=== PATIENT | female | born 1955 | race Caucasian/White ===

== ENCOUNTER 2018-07-10 06:22 | Emergency (ER) | payer MEDICARE, MEDICAID, SELFPAY ==
[2018-07-10 06:23] VITALS: BP 163/81; PULSE 68; RESP 16; TEMP 36.7; O2SAT 97; BMI 29.9
--- NOTE | 2018-07-10 06:39 | CT_ITS ---
STUDY: CT ABDOMEN AND PELVIS WITHOUT CONTRAST REASON FOR EXAM: Female, 63 years old. Left flank pain, nausea and vomiting RADIATION DOSAGE (If Supplied By Facility): CTDIvol = ( 8.05 ) mGy, DLP = ( 402.29 ) mGycm TECHNIQUE: Transaxial images were obtained from the dome of the diaphragm to the symphysis pubis without oral contrast, and without intravenous contrast. Sagittal and coronal images were reconstructed. Individualized dose optimization techniques were used for this CT. COMPARISON: None. FINDINGS: The visualized lung bases are unremarkable. The visualized portions of the heart are within normal limits. There is hepatomegaly with diffuse hepatic enlargement. There is non-visualization of the gallbladder, which may be secondary to either contraction or a prior cholecystectomy. Normal spleen. Normal pancreas. Normal bilateral adrenal glands. Normal right kidney. Left hydronephrosis and left hydroureter. Stone within the left UPJ measuring 6.5 x 6 mm. Left perinephric fat stranding and edema Normal visualized stomach. Normal small intestine. Normal colon. The appendix is visualized and appears normal. Normal abdominal aorta. Normal inferior vena cava. Normal retroperitoneum. Normal urinary bladder. There is atrophy of the uterus. Normal abdominal wall. There are diffuse degenerative changes of the visualized lumbar spine. CT/Abdomen/Pelvis without Cont IMPRESSION: Left hydronephrosis and left hydroureter with perinephric fat stranding and edema. Stone within the left UPJ as above Electronically Signed: Kaleb Kendall DO at 7:29 EST Tel , Service support ,
[2018-07-10 06:47] LABS: Absolute Lymphocyte Count 1.11 X10^3/ul (0.83-4.51); Absolute Neutrophil Count 7.5 X10^3/uL (2.0-7.7); Basophil# 0.02 X10^3/uL; Basophil% 0.2 % (0-1); Eosinophil# 0.02 X10^3/uL; Eosinophils% 0.2 % (0-5); Hematocrit 43.6 % (37-47); Hemoglobin 14.2 g/dl (12.0-15.0); Lymphocyte # 1.11 X10^3/ul (4.0); Lymphocyte % 12.4 % (19-41); Mean Corp Hgb Conc 32.6 g/gl (32-36); Mean Corpuscular Hgb 29.5 pg (27.0-32.0); Mean Corpuscular Volume 90.6 fL (81-99); Mean Platelet Vol. 9.8 fl (6.2-12.0); Monocyte# 0.27 X10^3/uL; Neutrophil # 7.52 X10^3/uL (2.7-7.7); Platelet Count 243 K/mm3 (150-450); RBC Distribution Width CV 14.2 % (11.6-14.6); RBC Distribution Width SD 46.7 fl (35.1-43.9); Red Blood Count 4.81 M/mm3 (4.2-5.4)
[2018-07-10 06:48] LABS: POSITIVE COUNT NO; POSITIVE DIFFERENTIAL NO; POSITIVE MORPHOLOGY NO
[2018-07-10] MEDS: Ondansetron 4 MG/2 ML Vial IV (06:48)
[2018-07-10] MEDS: 0.9% Normal Saline 1,000 ML 1000 ML IV (06:48)
[2018-07-10] MEDS: Morphine 4 MG/ML Syringe IV (06:48)
[2018-07-10 06:54] LABS: Anion Gap 12 (5-15); BUN 18 mg/dL (7-18); BUN/Creat Ratio 14.3 RATIO (10-20); Calcium,Total 9.7 mg/dL (8.5-10.1); Chloride 100 mmol/L (98-107); Creatinine, Serum 1.26 mg/dL (0.55-1.02); EST Glomerular Filtration Rate 46 mL/min (>60); Est Glom Filt Rate - Afr Amer 56 mL/min (>60); Estimated Creatinine Clearance 37.08 ml/min; Glucose 341 mg/dL (74-106); Sodium Level 137 mmol/L (136-145)
[2018-07-10 06:57] LABS: Mucous, Urine 0 SEEN /hpf (<or=2+)
[2018-07-10 07:06] LABS: Color, Urine Yellow (Yellow); Glucose, Dipstick 1000 mg/dl (Normal); Leukocyte Esterase-Dipstick 25 /ul (Negative); Nitrite-Dipstick Negative (Negative); Occult Blood-Urine 250 /ul (Negative); Protein-Dipstick 100 mg/dl (Negative); Specific Gravity, Urine 1.025 (1.002-1.030); Urine Bilirubin Dipstick Negative (Negative); Urine Clarity Cloudy (Clear); Urine Urobilinogen Normal (Normal)
[2018-07-10 07:32] LABS: Ketone-Dipstick 150 mg/dl (Negative)
[2018-07-10 07:37] LABS: Bacteria 1+ /hpf (None Seen); Red Blood Cells-Urine 25-50 SEEN /hpf (0-5); Squamous Epithelial Cells - UA 0-5 SEEN /hpf (5-10); White Blood Cells 0-5 SEEN /hpf (0-5)
[2018-07-10] MEDS: HYDROmorphone 1 MG/ML Syringe IV (08:13)
--- NOTE | 2018-07-10 08:46 | ED.VISSUMM ---
- ER Visit Summary Date of Service: 07/10/18 Chief Complaint: Left flank pain History of Present Illness: The patient is a [address] Lala. She reports that she has left flank pain that began suddenly yesterday. Says sharp pain is 10 out of 10 severity. Is worsened by nothing and relieved by nothing. She has been nausea and vomited quite a few times. No blood in her emesis. No diarrhea. She reports that she has had hematuria occasionally for the past 2 months. She denies any dysuria or frequency. No fever or chills. No personal or family history of kidney stones. Physical Examination: Vitals: Stable. Afebrile. General: Well-nourished and well-developed. Head: Normocephalic atraumatic. Neck: Supple, no lymphadenopathy. No JVD. Nontender. Cardiovascular: Regular rate and rhythm. No murmurs. Respiratory: No respiratory distress. Clear to auscultation bilaterally. Abdominal: Soft, mild left lower quadrant tenderness to palpation, nondistended, normal bowel sounds. No guarding, rebound, or peritoneal signs. Back: Nontender. Extremities: Nontender, no edema. Skin: Normal color, no rash. Neurologic: Alert and oriented ?3. Cranial nerves II through XII are intact. Normal strength and sensation. Psych: Normal affect. Test Results: CBC is marked for 7 neutrophils 84 lymphs lites 12. Chem-7 is more for glucose 341 creatinine 1.26. UA does not show an infection. Clinical Impression(s) from Imaging Studies Abdomen/Pelvis CT 07/10/18 06:39 IMPRESSION: Left hydronephrosis and left hydroureter with perinephric fat stranding and edema. Stone within the left UPJ as above Electronically Signed: Kaleb Kendall DO at 7:29 EST Tel , Service support , Emergency Department Course and Treatment: Patient had an IV placed. She was given a liter normal saline. She was given morphine and Zofran IV. She continues to experience pain that she reports is a 7 out of 10 severity. She was given a dose of Dilaudid IV and feels much improved. She reports her pain now is 2 out of 10 severity. She feels well and would like to go home. Treatment Plan: Patient will be discharged with Percocet and Zofran. Instructed to follow-up Dr. Walton in 3-5 days if not improving. Return to the emergency department for any worsening symptoms. Disposition: To home in improved and stable condition. Impression: 1. Left ureterolithiasis. 2. Hyperglycemia with history of type 2 diabetes mellitus. This note was generated with [employer] dictation software. It may contain incorrect words, spelling, and punctuation that were not noted in review of the chart prior to signing ED Disposition - Plan for ED Patient: Chief Complaint: Flank Pain Instructions: ED Stone Renal W Colic Prescriptions: Oxycodone HCl/Acetaminophen [Percocet 5/325] 1 tablet PO Q6H PRN PRN 5 Days #20 tablet PRN Reason: Pain Ondansetron [Zofran Odt] 4 mg PO Q8H PRN PRN #10 tablet PRN Reason: Nausea Referrals: Mino Walton MD [STAFF PHYSICIAN] - 3-5 Days if not improving
[2018-07-10 09:08] VITALS: BP 135/74; PULSE 81; RESP 16; O2SAT 97
== END 2018-07-10 09:09 | disposition home or self-care (01) ==
PROVIDERS: Emergency Provider Emergency Medicine; Family Provider Student in an Organized Health Care Education/Training Program; PCP Student in an Organized Health Care Education/Training Program
DX: N13.2 Hydronephrosis with renal and ureteral calculous obstruction (principal); E11.65 Type 2 diabetes mellitus with hyperglycemia; I10 Essential (primary) hypertension; E78.00 Pure hypercholesterolemia, unspecified; Z86.73 Personal history of transient ischemic attack (TIA), and cerebral infarction without residual deficits
CPT/HCPCS: 74176; 80048; 81001; 85025; 96361; 96374; 96375; 99284; J7030; A4216; J2405

== ENCOUNTER 2018-07-21 10:07 | Day surgery (SDC) | payer MEDICARE, MEDICAID, SELFPAY ==
[2018-07-21 10:30] VITALS: BP 128/66; PULSE 82; RESP 18; TEMP 37.3; O2SAT 95; BMI 28.8
[2018-07-21 10:31] LABS: Prothrombin Time Fingerstick 31.9 SEC (11.9-14.4)
[2018-07-21 10:47] LABS: International Normalized Ratio 2.6; Prothrombin Time (Protime)PT. 28.3 SECONDS (11.7-14.9)
[2018-07-21 10:52] LABS: Bedside Glucose 150 mg/dL (70-110)
--- NOTE | 2018-07-21 11:00 | OP.PCM_ITS ---
Problem List (1) Left ureteral calculus Status: Acute (2) Hydronephrosis, left Status: Acute Report of Operation Date of Procedure: 07/21/18 Pre-Operative Diagnosis: left ureteral calculus with hydronephrosis. Post-Operative Diagnosis: same, left ureteral laceration Surgery/Procedure Performed:: cystoscopy, left ureteroscopy, left ureteral stent insertion Description of Surgical Findings:: left stone seen proximally. difficult ureteroscopy with distal laceration to the ureter. Left ureteral stent inserted without difficulty. Good positioning of stent with curling in renal pelvis. Type of Anesthesia:: General Special Medications: ancef Specimen's removed: none Description of Procedure: The patient is a 63-year-old female seen in the office yesterday with severe left flank pain. She had a CT scan with her revealing a ureteral calculus with hydronephrosis. I obtained informed consent for cystoscopy with ureteroscopy and laser lithotripsy. Risks were discussed including the risk of anesthesia, cardiac issues, pulmonary issues, stroke, from anesthesia. We also discussed the risks of bleeding, infection, and injury. Specifically we discussed ureteral injury, bladder injury and the need for prolonged stent insertion. The patient understood and agreed to proceed. Patient was taken to the operating room and placed on the operating room table. Anesthesia monitored the head, neck, airway, IV access, vital signs throughout the case. Once anesthesia was appropriately administered, the patient was placed into dorsal lithotomy position and was prepped and draped in usual sterile fashion. A cystourethroscopy was then performed revealing no evidence of bladder mucosal abnormality including mass, erythema, ulceration or foreign body. The ureteral orifices were correctly identified on the area of the trigone. The left ureteral orifice was easily intubated with a 0.035 Glidewire and was seen proximally curling in the renal pelvis. At this time a semirigid ureteroscopy was attempted and became difficult distally and a 0.025 Glidewire was passed also with entry into the renal pelvis. At this time it was observed that there was likely a laceration of the distal third of the ureter and the decision was made to place a stent and abort ureteroscopy. The cystoscope was used to pass a 6 [place] 24 cm double-J stent through the ureter with good curling in the renal pelvis as well as the urinary bladder. Patient's bladder was then emptied and the case was terminated. The patient tolerated the procedure well. Grafts/Implants Used: 6x24 JJ ureteral stent. - Complications left ureteral laceration. - Admit VTE Documentation VTE Present on Admission: Yes VTE Mechan Device Prophylaxis: SCD's VTE Pharm Prophylaxis ordered?: Yes
--- NOTE | 2018-07-21 11:01 | DCINST_ITS ---
Discharge Diet: No Restrictions Discharge Activity: May not drive while taking narcotic pain medications. May resume sexual activity in: No Restrictions Call your doctor if you observe: Fever of 101 or Higher, Inability to urinate, Inability to have a bowel movement, Shortness of breath, Chest pain, Calf discomfort, Uncontrolled pain Allergies/Adverse Reactions: Allergies aspirin Allergy (Verified 07/20/18 11:58) Hives clopidogrel [From Plavix] Allergy (Verified 07/20/18 11:58) Hives codeine Allergy (Verified 07/20/18 11:58) Hives Medications to take at Discharge Albuterol IH (ProAir) [Proair Hfa] 2 puff INHALATION Q4H PRN PRN 09/07/13 Cholecalciferol (Vitamin D3) [Vitamin D] 2,000 unit PO DAILY 09/07/13 Glimepiride [Amaryl] 4 mg PO BID 09/07/13 Levothyroxine [Synthroid] 100 mcg PO DAILY 09/07/13 Metformin HCl [Glucophage] 1,000 mg PO BIDCM 09/07/13 Tizanidine HCl [Zanaflex] 0.5 - 1 mg PO DAILY PRN 09/07/13 Warfarin [Coumadin] 5 mg PO DAILY 09/07/13 Dulaglutide [Trulicity] 1.5 mg SQ 07/10/18 Insulin Aspart [Novolog Flexpen] 15 units SC TIDCM 07/10/18 Insulin Degludec [Tresiba Flextouch U-100] 100 unit SQ QHS 07/10/18 Losartan Potassium 10 mg PO DAILY 07/10/18 Lovastatin 20 mg PO QHS 07/10/18 Ondansetron [Zofran Odt] 4 mg PO Q8H PRN PRN #10 tablet 07/10/18 Warfarin [Coumadin] 2.5 mg PO 07/10/18 Cephalexin [Keflex] 500 mg PO Q12 3 Days #6 cap 07/21/18 Phenazopyridine HCl [Pyridium] 200 mg PO TID PRN PRN 7 Days #30 tab 07/21/18 The following prescriptions were given: Cephalexin [Keflex] 500 mg PO Q12 3 Days #6 cap Phenazopyridine HCl [Pyridium] 200 mg PO TID PRN PRN 7 Days #30 tab PRN Reason: Bladder Spasms Primary Care Physician: David Lala DO [Primary Care Provider] - Test Results: Test results from this visit will be discussed in further detail at your follow- up appointment, if applicable. Please Follow Up With: Diane Garza MD When: 1-2 weeks for stent removal, call office for appt Proposed Discharge Date: 07/21/18
[2018-07-21] MEDS: Cefazolin 2 GM in 0.9% Normal Saline 100 ML IV (11:27)
[2018-07-21 11:50] VITALS: BP 108/63; BP 128/66; PULSE 82; RESP 16; TEMP 37.2; O2SAT 92
[2018-07-21 12:00] VITALS: BP 102/59; BP 128/66; PULSE 75; RESP 16; O2SAT 92
[2018-07-21 12:15] VITALS: BP 112/63; BP 128/66; PULSE 77; RESP 16; TEMP 37; O2SAT 94
[2018-07-21 12:42] VITALS: BP 128/66
== END 2018-07-21 13:06 | disposition home or self-care (01) ==
LOC: SDC 10:07 → AC 10:08
PROVIDERS: Family Provider Student in an Organized Health Care Education/Training Program; PCP Student in an Organized Health Care Education/Training Program; Referring Provider Urology; Visit Provider Urology
PROC: 0TJ98ZZ Inspection of Ureter, Via Natural or Artificial Opening Endoscopic (ICD-10-PCS; CPT 52352; principal; 2018-07-21 11:35)
DX: N13.2 Hydronephrosis with renal and ureteral calculous obstruction (principal); M54.5 Low back pain; N39.3 Stress incontinence (female) (male); N39.41 Urge incontinence; S37.13XA Laceration of ureter, initial encounter; Y33.XXXA Other specified events, undetermined intent, initial encounter; Y93.9 Activity, unspecified; Y92.234 Operating room of hospital as the place of occurrence of the external cause; Y99.9 Unspecified external cause status; E11.9 Type 2 diabetes mellitus without complications; I10 Essential (primary) hypertension; E78.00 Pure hypercholesterolemia, unspecified; Q21.1 Atrial septal defect; G35 Multiple sclerosis; Z79.01 Long term (current) use of anticoagulants; Z86.73 Personal history of transient ischemic attack (TIA), and cerebral infarction without residual deficits
CPT/HCPCS: 52332; 52351; 36415; 36416; 76000; 82962; 85610; J7120; C1769; C2617

== ENCOUNTER → 2018-08-25 07:55 | Outpatient (CLI) | payer MEDICARE, MEDICAID, SELFPAY ==
--- NOTE | 2018-08-25 07:57 | CT_ITS ---
STUDY: CT ABDOMEN AND PELVIS WITH AND WITHOUT CONTRAST REASON FOR EXAM: Female, 63 years old. Left-sided kidney stone. Stent placement July 21, 2018. RADIATION DOSAGE (If Supplied By Facility): CTDIvol = ( 16.80 ) mGy, DLP = ( 1955.99 ) mGycm TECHNIQUE: Transaxial images were obtained from the dome of the diaphragm to the symphysis pubis without oral contrast. Isovue 300 100mL IV was administered. Sagittal and coronal images were reconstructed. Individualized dose optimization techniques were used for this CT. COMPARISON: None. FINDINGS: The visualized lung bases are unremarkable. The visualized portions of the heart are within normal limits. Subcentimeter hypodensity in the right lobe of the liver measuring 8 mm. 2 small to further characterize, remainder of the liver is within normal limits. There is non-visualization of the gallbladder, which may be secondary to either contraction or a prior cholecystectomy. Normal spleen. Normal pancreas. Normal bilateral adrenal glands. Small nonenhancing right upper pole renal cyst measuring 1.2 cm. Otherwise, unremarkable right kidney. Left kidney demonstrates mild hydronephrosis with a left ureteral stent extending into the bladder. The bladder is decompressed. There appears to be a stone subjacent to the stent in the upper ureter measuring 4.9 mm. Otherwise, the left kidney is within normal limits without other stones. There is a small hiatal hernia. In the gastric antrum, there is a rounded density which may represent ingested contents measuring 1.0 cm. Normal small intestine. Normal colon. The appendix is visualized and appears normal. Normal abdominal aorta. Normal inferior vena cava. Normal retroperitoneum. Bladder is underdistended. Stent terminates within the bladder. Normal visualized uterus. Normal abdominal wall. There are diffuse degenerative changes of the visualized lumbar spine. CT/CT Abd/Pelvis W/WO Contrast IMPRESSION: Mild left hydronephrosis with left ureteral stent. There appears to be a stone adjacent to the stent as detailed above. Nonenhancing right renal cyst. Remainder is within normal limits Electronically Signed: Kaleb Kendall DO at 11:13 EDT Tel , Service support ,
[2018-08-25 08:21] LABS: CREATININE FINGERSTICK 1.1 mg/dL (0.55-1.02)
== END ==
PROVIDERS: Family Provider Student in an Organized Health Care Education/Training Program; PCP Student in an Organized Health Care Education/Training Program; Referring Provider Urology; Visit Provider Urology
DX: N20.0 Calculus of kidney (principal)
CPT/HCPCS: 74178; Q9967

== ENCOUNTER 2018-09-07 18:37 | Inpatient (IN) | payer MEDICARE, MEDICAID, SELFPAY ==
[2018-09-04 09:19] VITALS: BP 136/74; PULSE 94; RESP 18; TEMP 37.1; O2SAT 95; BMI 28.2
--- NOTE | 2018-09-04 09:45 | DCINST_ITS ---
Discharge Diet: No Restrictions Discharge Activity: May not drive while taking narcotic pain medications. Call your doctor if you observe: Fever of 101 or Higher, Inability to urinate, Inability to have a bowel movement, Shortness of breath, Chest pain, Calf discomfort Allergies/Adverse Reactions: Allergies aspirin Allergy (Verified 09/03/18 08:31) Hives clopidogrel [From Plavix] Allergy (Verified 09/03/18 08:31) Hives codeine Allergy (Verified 09/03/18 08:31) Hives Medications to take at Discharge Albuterol IH (ProAir) [Proair Hfa] 2 puff INHALATION Q4H PRN PRN 09/07/13 Cholecalciferol (Vitamin D3) [Vitamin D] 2,000 unit PO DAILY 09/07/13 Glimepiride [Amaryl] 4 mg PO BID 09/07/13 Levothyroxine [Synthroid] 100 mcg PO DAILY 09/07/13 Metformin HCl [Glucophage] 1,000 mg PO BIDCM 09/07/13 Tizanidine HCl [Zanaflex] 0.5 - 1 mg PO DAILY PRN 09/07/13 Warfarin [Coumadin] 5 mg PO TUTH 09/07/13 Dulaglutide [Trulicity] 1.5 mg SQ WE 07/10/18 Insulin Aspart [Novolog Flexpen] 15 units SC TIDCM 07/10/18 Insulin Degludec [Tresiba Flextouch U-100] 50 unit SQ QHS 07/10/18 Losartan Potassium 10 mg PO DAILY 07/10/18 Lovastatin 20 mg PO QHS 07/10/18 Warfarin [Coumadin] 2.5 mg PO SUMOWEFRSA 07/10/18 Cephalexin [Keflex] 250 mg PO QHS 120 Days #90 cap 07/21/18 Primary Care Physician: David Lala DO [Primary Care Provider] - Test Results: Test results from this visit will be discussed in further detail at your follow- up appointment, if applicable. Please Follow Up With: Diane Garza MD When: call office for appt. Proposed Discharge Date: 09/04/18
--- NOTE | 2018-09-04 09:45 | PCM.OPRPT ---
Problem List (1) Left ureteral calculus Status: Acute (2) Hydronephrosis, left Status: Acute Report of Operation Date of Procedure: 09/04/18 Pre-Operative Diagnosis: left ureteral calculus with hydronephrosis Post-Operative Diagnosis: same Surgery/Procedure Performed:: left ureteral extracorporeal shockwave lithotripsy Type of Anesthesia:: General - Admit VTE Documentation VTE Present on Admission: Yes VTE Mechan Device Prophylaxis: SCD's VTE Pharm Prophylaxis ordered?: No Reason prophylaxis not ordered:: Treatment Not Indicated
[2018-09-04 10:41] LABS: Bedside Glucose 164 mg/dL (70-110)
[2018-09-04 10:50] LABS: Prothrombin Time Fingerstick 19.8 SEC (11.9-14.4)
[2018-09-04] MEDS: Cefazolin 2 GM in 0.9% Normal Saline 100 ML IV (12:57)
[2018-09-07] VITALS (14 sets, daily range): BP systolic 80–133; BP diastolic 46–70; PULSE 66–104; RESP 16–18; TEMP 36.1–39.6; O2SAT 91–99; BMI 28.0
[2018-09-07 10:16] LABS: Bedside Glucose 135 mg/dL (70-110)
[2018-09-07 10:29] LABS: International Normalized Ratio 1.3; Prothrombin Time (Protime)PT. 15.9 SECONDS (11.7-14.9)
--- NOTE | 2018-09-07 12:00 | CALC_PTH ---
PATIENT: MARÍA ELENA TALAVERA LOC: MS2 U#:[id number] AGE/SX: 63/F ROOM: [facility] [id number] RE09/07/[address]: Dr. Ursula Schumacher DO : 1955 BED: 1 DIS: 09/09/2018 SPEC #: [id number] RECD: 09/07/18 16:07 STATUS: KINZA JENNIFER #: [id number] JOHN: 09/07/18 12:[address]: Diane Garza DEPT: SURGICAL PATHOLOGY RECD BY: Lorenzo Oakley ENTERED: 09/08/18 11:25 SP TYPE: Calculi OTHR DR: DO Dr. David Wagner DO Dr. Mark Tereletsky, DO Tissues: CALCULI Procedures: Surgery Specimen Level I HEADER OPERATION: Left ureteroscopy, retrogrades, holmium laser PRE-OP DIAGNOSIS: Calculus of ureter TISSUE SUBMITTED: Calculi, urinary with photo GROSS DIAGNOSIS A fragment of stone, clinically calculus of ureter, submitted entirely for analysis. VLADIMIR:neel 09/08/18 COMMENT The calculus is submitted in its entirety for chemical stone analysis. The results from this study will be reported separately. GROSS DESCRIPTION Received is one container labeled with the patient's name and designated calculi. The specimen consists of a fragment of garay-brown stone measuring 0.6 x 0.2 x 0.2 cm. The entire specimen is submitted for stone analysis. / VLADIMIR:neel 09/08/18 CPT: 73359
[2018-09-07] MEDS: Cefazolin 2 GM in 0.9% Normal Saline 100 ML IV (12:57)
--- NOTE | 2018-09-07 13:00 | PCM.OPRPT ---
Problem List (1) Left ureteral calculus Status: Acute (2) Hydronephrosis, left Status: Acute Report of Operation Date of Procedure: 09/07/18 Pre-Operative Diagnosis: left ureteral calculus Post-Operative Diagnosis: same Surgery/Procedure Performed:: cystoscopy, left ureteroscopy, holmium laser lithotripsy, stone basket extraction, left ureteral stent change. Description of Surgical Findings:: large stone in mid ureter. lasered into smaller fragments, many flushed into the bladder. One large fragment removed with basket. stent changed. Type of Anesthesia:: General Special Medications: Ancef 2 grams IV Estimated Blood Loss (mL): 5cc Description of Procedure: The patient is a 63-year-old female who previously underwent a left ureteral stent insertion after attempted ureteroscopy. She now presents for treatment of her stone. Informed consent was obtained. Patient's INR is 1.3. The patient was taken the operating room and placed on the operating room table. Anesthesia monitored the head, neck, airway, IV access and vital signs throughout the case. Once anesthesia was appropriately administered, the patient was placed into dorsal lithotomy position. She was prepped and draped in usual sterile fashion. A cystourethroscopy was performed. The left ureteral stent was observed and two 0.035 Glidewires were passed alongside the stent into the renal pelvis and confirmed on fluoroscopic visualization. The stent was removed from the other working port. One of the Glidewires was left as a safety wire and the other one was used for the flexible ureteroscope. The ureteroscope passed easily over the wire all the way up to the renal pelvis. The stone could be felt alongside the scope and was identified in the distal ureter. It was fragmented into small pieces using a 270 micron laser fiber. The stone was much larger than initially thought. When a small piece was remaining, it was basket retrieved and removed from the bladder without difficulty. Upon reinsertion into the ureter there were no remaining pieces identified. The cystoscope was then used to pass a 6 [place] 24 cm double-J wire over the safety wire with good curling in the renal pelvis as well as the urinary bladder. Multiple fragments were then irrigated from the bladder. Some of the stone pieces were sent for evaluation. The patient was then awakened and taken to the recovery room. There were no complications during the procedure. The patient and the daughter were instructed to restart the coumadin today. Grafts/Implants Used: 6x24 JJ stent - Complications none - Admit VTE Documentation VTE Present on Admission: Yes VTE Mechan Device Prophylaxis: SCD's VTE Pharm Prophylaxis ordered?: Yes
[2018-09-07] MEDS: Lubricating Jelly 60 GM Tube 30 GM TOPICAL (13:08)
[2018-09-07 14:35] LABS: Bedside Glucose 64 mg/dL (70-110)
[2018-09-07 15:06] LABS: Bedside Glucose 63 mg/dL (70-110)
[2018-09-07 15:31] LABS: Bedside Glucose 64 mg/dL (70-110)
[2018-09-07] MEDS: Acetaminophen 325 MG Tablet 650 MG PO (17:42)
--- NOTE | 2018-09-07 17:44 | SUR.PHASEII ---
Addendum entered by Lenora Murphy 09/07/18 17:47: DR DHALIWAL EVALUATED AT 1600 PER PROTOCOL, AND UPDATED AGAIN AT 1725, AWARE OF TEMP AND BP AT 1725, VERBAL INSTRUCTION TO CONTINUE IVF ORDERED. Original Note: PAGED DR. WILLS TO UPDATE: WAS STABLE AND D/C EARLIER FROM PACU TO PHASE II PER PROTOCOL. PATIENT ABLE TO VOID. TEMP IS NOW 103.3, SBP <20% OF ADMIT BP AT 90/53. DENIES PAIN. EATING VERY LITTLE, STILL SLIGHTLY NAUSEATED BUT ABLE TO DRINK AND EAT SOME JELLO, SLEEPY SINCE HAVING PHENERGAN. ACCUCHECK 107. DR WILLS WILL ADMIT TO MED-SURG, WILL COME IN TO SEE PATIENT.
[2018-09-07 18:00] LABS: Bedside Glucose 107 mg/dL (70-110)
--- NOTE | 2018-09-07 18:00 | SUR.PHASEII ---
PO TYLENOL GIVEN. DR WILLS HERE EVALUATING PATIENT, WILL ADMIT OVERNIGHT TO MED-SURG. PATIENT AND FAMILY AWARE. CALLED MATERIAL HAND[employer]ER 2ND SHIFT FOR BED ASSIGNMENT, WILL ADMIT TO PCU FOR HOSPITAL CONVENIENCE. DR WILLS PAGING HOSPITALIST.
--- NOTE | 2018-09-07 18:27 | PCM.HP.BLA ---
Problem List (1) Left ureteral calculus Status: Acute (2) Hydronephrosis, left Status: Acute History and Physical Date of Admission: 09/07/18 Please see the full history and physical on the chart from pre-surgery.
--- NOTE | 2018-09-07 18:28 | PCM.PN.BLA ---
Progress Note Called secondary to new fever to 103. Patient was nauseated earlier, now taking PO. Mild left flank pain, feeling tired, otherwise no complaints at present. Temp 103.3, HR 97, BP 90/53, RR 16, 96% on room air. No acute distress, appropriate affect. abdomen soft No nava A/P Urosepsis following ureteroscopy and laser lithotripsy with stent change admit, IVF, cultures, supportive care Consult hospitalist for help with insulin, anticoagulation, already contacted. labs, nava
[2018-09-07] MEDS: Dextrose 5%-Lactated Ringers 1,000 ML 125 ML IV (19:50)
[2018-09-07 20:55] LABS: Hematocrit 32.3 % (37-47); Hemoglobin 10.6 g/dl (12.0-15.0); Mean Corp Hgb Conc 32.8 g/gl (32-36); Mean Corpuscular Hgb 29.5 pg (27.0-32.0); Mean Platelet Vol. 9.4 fl (6.2-12.0); Platelet Count 188 K/mm3 (150-450); RBC Distribution Width CV 14.8 % (11.6-14.6); RBC Distribution Width SD 48.4 fl (35.1-43.9); Red Blood Count 3.59 M/mm3 (4.2-5.4); Scan Indicated on CBC? Y/N NO; White Blood Count 4.5 K/mm3 (4.4-11.0)
[2018-09-07 21:04] LABS: International Normalized Ratio 1.5; Prothrombin Time (Protime)PT. 17.6 SECONDS (11.7-14.9)
[2018-09-07 21:08] LABS: Anion Gap 7 (5-15); BUN 11 mg/dL (7-18); BUN/Creat Ratio 10.4 RATIO (10-20); Calcium,Total 8.3 mg/dL (8.5-10.1); Chloride 106 mmol/L (98-107); Creatinine, Serum 1.06 mg/dL (0.55-1.02); EST Glomerular Filtration Rate 56 mL/min (>60); Est Glom Filt Rate - Afr Amer 68 mL/min (>60); Estimated Creatinine Clearance 44.08 ml/min; Glucose 264 mg/dL (74-106); Potassium 3.6 mmol/L (3.5-5.1); Sodium Level 137 mmol/L (136-145)
[2018-09-07] MEDS: Insulin Lispro 100 UNIT/ML INSULN.PEN SC (21:33)
[2018-09-07] MEDS: Heparin Injection (Vial) 5,000 UNIT/ML VIAL 5000 UNIT SC (21:35)
[2018-09-07] MEDS: Ciprofloxacin 400 MG/200 ML BAG 200 MG IV (21:37)
--- NOTE | 2018-09-07 21:45 | PCM.PROGNOTE ---
Subjective: Patient was seen and examined at the request of urology, she was admitted to PCU due to a high temperature following cystoscopy, left ureteroscopy, laser lithotripsy, stone basket extraction, and left ureteral stent change today by urology. Patient has a history of type 2 diabetes, patent foramen ovale, chronic Coumadin usage, hypothyroidism, hyperlipidemia, and recent left ureteral stone. At the time of my examination tonight, patient has no specific complaints. - Physical Exam General: Alert, Oriented x3, Cooperative, No apparent distress, Well developed, Well nourished HEENT: Atraumatic, PERRLA, EOMI, Normocephalic Oral: Moist Mucosa Neck: Supple, No JVD, Negative Carotid Bruits, No Nuchal Rigidity, Trachea Midline, Thyroid Normal Size and Texture Lungs: Clear to auscultation, Normal air movement, No rhonchi, No wheeze, No rales Cardiovascular: Regular rate, Regular Rhythm, Normal S1, Normal S2, No murmurs, No Ectopic Activity, PMI Normal, No rub noted, No Gallop Abdomen: Bowel Sounds Present, Soft, Non Tender, Non-Distended, No hernias noted Extremities: No clubbing, No cyanosis, No edema, Capillary Refill Less than 3 Seconds Skin: No rashes, No breakdown Musculoskeletal: No Tenderness to Palpation of Joints or Extremities, No Muscle Wasting Neurological: Cranial nerves II-XII grossly intact, Neuro grossly intact, Sensory exam intact to light touch and pain, Coordination normal Psych/Mental Status: Normal Affect, Appropriate, Alert and oriented to time, place, person, mood and affect Vital Signs Temp Pulse Resp BP Pulse Ox 99.9 F H 104 H 18 80/47 L 92 09/07/18 19:54 09/07/18 19:54 09/07/18 19:54 09/07/18 19:54 09/07/18 19:54 Oxygen Delivery Method Room Air Weight: 69.7 kg Body Mass Index (BMI) 28.0 Finger Stick Blood Glucose 107 Intake and Output for Last 24 Hours 09/05/18 09/06/18 09/07/18 23:59 23:59 23:59 Intake Total 3700 / 3700 Balance 3700 / 3700 Laboratory Tests Past 24 Hrs 09/07/18 09/07/18 09/07/18 10:07 10:12 20:30 WBC 4.5 RBC 3.59 L Hgb 10.6 L Hct 32.3 L MCV 90.0 MCH 29.5 MCHC 32.8 RDW 14.8 H RDW Differential 48.4 H Plt Count 188 MPV 9.4 POC PT 18.0 H PT 15.9 H INR 1.50 1.3 Sodium Potassium Chloride Carbon Dioxide Anion Gap BUN Creatinine Estim Creat Clear Calc Est GFR (MDRD) Af Amer Est GFR (MDRD) Non-Af BUN/Creatinine Ratio Glucose Calcium 09/07/18 09/07/18 20:30 20:35 WBC RBC Hgb Hct MCV MCH MCHC RDW RDW Differential Plt Count MPV POC PT PT 17.6 H INR 1.5 Sodium 137 Potassium 3.6 Chloride 106 Carbon Dioxide 24.0 Anion Gap 7 BUN 11 Creatinine 1.06 H Estim Creat Clear Calc 44.08 Est GFR (MDRD) Af Amer 68 Est GFR (MDRD) Non-Af 56 L BUN/Creatinine Ratio 10.4 Glucose 264 H Calcium 8.3 L POC Glucose 09/07/18 09/07/18 09/07/18 17:13 15:23 14:58 POC Glucose 107 64 L 63 L 09/07/18 09/07/18 14:19 10:12 POC Glucose 64 L 135 H Medical Necessity - Tobacco Use Smoking Status: Never smoker Assessment/Plan All Active Problems Left ureteral calculus (Acute) Hydronephrosis, left (Acute) #1 type 2 diabetes-blood sugars will be monitored, she will be given sliding scale insulin per fingerstick blood sugars #2 patent foramen ovale-patient was placed back on her Coumadin #3 hypothyroidism-patient will remain on Synthroid #4 fever-concerning for acute pyelonephritis, patient's CBC will be rechecked tomorrow, urology has placed the patient on IV Cipro. #5 probable stage III chronic kidney disease secondary to type 2 diabetes Code Visit Inpatient E&M: 44605 Subs Hosp L2
[2018-09-07 23:06] LABS: Bedside Glucose 256 mg/dL (70-110)
[2018-09-08 03:54] VITALS: BP 96/50; PULSE 94; RESP 18; TEMP 37.6; O2SAT 96
[2018-09-08] MEDS: Dextrose 5%-Lactated Ringers 1,000 ML 125 ML IV (04:20)
[2018-09-08] MEDS: Heparin Injection (Vial) 5,000 UNIT/ML VIAL 5000 UNIT SC ×3 (05:38→22:05)
[2018-09-08] MEDS: Levothyroxine 100 MCG Tablet PO (05:38)
[2018-09-08 07:01] LABS: Bedside Glucose 120 mg/dL (70-110)
[2018-09-08 09:10] VITALS: O2SAT 92
[2018-09-08 09:15] VITALS: BP 103/52; PULSE 99; RESP 14; TEMP 37.8; O2SAT 92
[2018-09-08] MEDS: Ciprofloxacin 400 MG/200 ML BAG 200 MG IV ×2 (09:24→22:05)
[2018-09-08] MEDS: Acetaminophen 325 MG Tablet 650 MG PO (09:26)
[2018-09-08] MEDS: Insulin Lispro 100 UNIT/ML INSULN.PEN SC ×3 (11:49→22:05)
--- NOTE | 2018-09-08 11:50 | PCM.PN.GU ---
Physical Exam Subjective: Feeling better, want to go home. No new issues or events overnight. Objective: Noted that nava was never inserted as ordered last night. Labs from this am were cancelled. 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 - Physical Exam Vital Signs Temp 100.1 F H 09/08/18 09:15 Pulse 99 09/08/18 09:15 Resp 14 09/08/18 09:15 BP 103/52 L 09/08/18 09:15 Pulse Ox 92 09/08/18 09:15 Intake & Output 09/06/18 09/07/18 09/08/18 23:59 23:59 23:59 Intake Total 4402 / 4402 2540 / 2540 Output Total 1550 / 1550 Balance 4402 / 4402 990 / 990 Weight: 69.7 kg Intake: Oral 120 / 120 970 / 970 IV fluid/meds 4282 / 4282 1570 / 1570 IV #2 1400 / 1400 IV #3 2300 / 2300 Output: Urine 1550 / 1550 Other: Number of Voids 2 General: Alert, Oriented x3, Cooperative, No apparent distress HEENT: Atraumatic, Normocephalic Oral: Dry Mucosa Neck: Supple Abdomen: Soft Skin: No rashes Musculoskeletal: No Muscle Wasting Neurological: Cranial nerves II-XII grossly intact Laboratory Tests Past 24 Hrs 09/07/18 09/07/18 09/07/18 16:07 20:30 20:30 WBC 4.5 RBC 3.59 L Hgb 10.6 L Hct 32.3 L MCV 90.0 MCH 29.5 MCHC 32.8 RDW 14.8 H RDW Differential 48.4 H Plt Count 188 MPV 9.4 Neut % (Auto) Absolute Neuts (auto) Total Counted PT INR Sodium 137 Potassium 3.6 Chloride 106 Carbon Dioxide 24.0 Anion Gap 7 BUN 11 Creatinine 1.06 H Estim Creat Clear Calc 44.08 Est GFR (MDRD) Af Amer 68 Est GFR (MDRD) Non-Af 56 L BUN/Creatinine Ratio 10.4 Glucose 264 H Calcium 8.3 L Stone Size Pending Stone Weight Pending Stone Color Pending 09/07/18 09/08/18 09/08/18 20:35 11:28 11:28 WBC Pending RBC Pending Hgb Pending Hct Pending MCV Pending MCH Pending MCHC Pending RDW Pending RDW Differential Pending Plt Count Pending MPV Neut % (Auto) Pending Absolute Neuts (auto) Pending Total Counted Pending PT 17.6 H INR 1.5 Sodium Pending Potassium Pending Chloride Pending Carbon Dioxide Pending Anion Gap Pending BUN Pending Creatinine Pending Estim Creat Clear Calc Est GFR (MDRD) Af Amer Pending Est GFR (MDRD) Non-Af Pending BUN/Creatinine Ratio Pending Glucose Pending Calcium Pending Stone Size Stone Weight Stone Color Medical Necessity - Tobacco Use Smoking Status: Never smoker Assessment/Plan All Active Problems Left ureteral calculus (Acute) Hydronephrosis, left (Acute) continue supportive care and antibiotics. await culture results. labs tomorrow, todays are pending. continue coumadin. INR in am. Bladder scan PVR.
[2018-09-08 11:52] LABS: Absolute Lymphocyte Count 0.81 X10^3/ul (0.83-4.51); Absolute Neutrophil Count 6.1 X10^3/uL (2.0-7.7); Basophil# 0.02 X10^3/uL; Basophil% 0.3 % (0-1); Eosinophil# 0.18 X10^3/uL; Eosinophils% 2.4 % (0-5); Hematocrit 32.1 % (37-47); Hemoglobin 10.4 g/dl (12.0-15.0); Lymphocyte # 0.81 X10^3/ul (4.0); Lymphocyte % 10.9 % (19-41); Mean Corp Hgb Conc 32.4 g/gl (32-36); Mean Corpuscular Hgb 29.4 pg (27.0-32.0); Mean Corpuscular Volume 90.7 fL (81-99); Mean Platelet Vol. 9.6 fl (6.2-12.0); Monocyte# 0.37 X10^3/uL; Neutrophil # 6.05 X10^3/uL (2.7-7.7); Neutrophil % 81.3 % (47-70); Platelet Count 185 K/mm3 (150-450); RBC Distribution Width CV 14.9 % (11.6-14.6); RBC Distribution Width SD 49.9 fl (35.1-43.9); Red Blood Count 3.54 M/mm3 (4.2-5.4); White Blood Count 7.4 K/mm3 (4.4-11.0)
[2018-09-08 11:54] LABS: POSITIVE COUNT NO; POSITIVE DIFFERENTIAL NO; POSITIVE MORPHOLOGY NO
--- NOTE | 2018-09-08 11:57 | CASEMGMT ---
SUSANA MINOR assessment: Face to Face with patient for initial transition planning/care coordination assessment. SUSANA MINOR introduced self and role at [facility], pt voices understanding and consents to assessment at this time. Pt is sitting up in bed in no distress at this time. Pt is A/Ox4 at this time and answers all questions appropriately at this time. Pt's family at bedside during assessment. Care providers, pharmacy, and demographics verified at this time. PCP: Spike Specialists: Greg uro; Regina neuro Preferred Pharmacy: [facility] Insurance: [facility] A/B, [facility] Prescription Benefit: [employer] Living Will/HPOA: Pt states does not currently have LW/HPOA and declines info at this time. LNOK: Ashley Mathur, daughter Living Arrangements: Pt states lives alone in apartment and states no concerns at home at this time. Pt states has a flight of stairs in apt and states no concerns at home at this time. Pt states is independent with ADL's. Transportation: Pt states her car is broken down but her daughter drives her where she needs to go and states no transportation concerns at this time. DME/HHC: Pt states has a cane and shower chair and states no need for any further DME at this time. Pt states no hx of HHC or SNF in the past. Pt states no concerns with going home at time of discharge. Pt states is disabled. Pt states does not smoke or drink ETOH. Pt states no further concerns/needs at this time. CM to follow for any further discharge planning/needs. Advised pt to ask for CM if any further questions/concerns/needs arise, voices understanding. Pt Goal: Home Plan: Home [place] S[place]NA MINOR
[2018-09-08] MEDS: Lactated Ringers 1,000 ML 100 ML IV ×2 (12:00→20:08)
[2018-09-08 12:14] LABS: Anion Gap 9 (5-15); BUN 8 mg/dL (7-18); BUN/Creat Ratio 8.9 RATIO (10-20); Calcium,Total 8.7 mg/dL (8.5-10.1); Chloride 106 mmol/L (98-107); EST Glomerular Filtration Rate 67 mL/min (>60); Est Glom Filt Rate - Afr Amer 81 mL/min (>60); Estimated Creatinine Clearance 51.92 ml/min; Glucose 245 mg/dL (74-106); Potassium 3.7 mmol/L (3.5-5.1); Sodium Level 141 mmol/L (136-145)
[2018-09-08 14:49] VITALS: BP 121/53; PULSE 93; RESP 14; TEMP 37.2; O2SAT 98
--- NOTE | 2018-09-08 15:15 | NURSING ---
called Dr. Garza clarified orders for cpro to be continued was only in x 2 doses
[2018-09-08 15:21] LABS: Bedside Glucose 234 mg/dL (70-110)
--- NOTE | 2018-09-08 18:15 | PN_ITS ---
Subjective: Hospitalist consult Day #2 Cipro The patient is a 63-year-old female who was taken to surgery by Dr. Garza on 09/07/2018 for cystoscopy, left ureteroscopy, laser lithotripsy, stone basket extraction and left ureteral stent. Postoperatively she had a fever of 103.3 and she was admitted to the hospital. Her past medical history is significant for type 2 diabetes mellitus, patent foramen ovale, chronic anticoagulation with Coumadin, hypothyroidism, hyperlipidemia and recent left ureteral stone. All events of the past 24 hours of been reviewed. T-max is 103.3. Current temp is 98.9. Blood pressures are improving with fluids and antibiotics. The lowest blood pressure was 80/47 and current blood pressure is 121/53. Pulse is in the 90s. Pulse ox is 92-98% on room air. All lab was personally reviewed. The white blood cell count today is 7.4 with 81% neutrophils. Hemoglobin is stable at 10.4 and platelets are within normal limits. BMP is unremarkable. Fasting blood sugar this a.m. was 245. Stone analysis is pending. Blood and urine cultures are pending. Patient denies nausea/vomiting, abdominal pain, flank pain, dysuria. She has been urinating no significant residuals. Shortness of breath, chest pain. - Physical Exam General: Alert, Oriented x3, Cooperative, No apparent distress, Well developed, Well nourished HEENT: Atraumatic, PERRLA, Normocephalic Oral: Moist Mucosa Neck: Supple, No Nodes, Trachea Midline Lungs: Clear to auscultation Cardiovascular: Regular rate, Regular Rhythm, Normal S1, Normal S2, No murmurs, No rub noted, No Gallop Abdomen: Bowel Sounds Present, Soft, Non Tender, Non-Distended Extremities: No clubbing, No cyanosis, No edema Skin: No rashes Neurological: Cranial nerves II-XII grossly intact, Neuro grossly intact Psych/Mental Status: Normal Affect, Appropriate Vital Signs Temp Pulse Resp BP Pulse Ox 98.9 F 93 14 121/53 H 98 09/08/18 14:49 09/08/18 14:49 09/08/18 14:49 09/08/18 14:49 09/08/18 14:49 Oxygen Delivery Method Room Air Weight: 153 lb 10.595 oz Body Mass Index (BMI) 28.0 Finger Stick Blood Glucose 107 Intake and Output for Last 24 Hours 09/06/18 09/07/18 09/08/18 23:59 23:59 23:59 Intake Total 4402 / 4402 2540 / 2540 Output Total 2325 / 2325 Balance 4402 / 4402 215 / 215 Laboratory Tests Past 24 Hrs 09/07/18 09/07/18 09/07/18 16:07 20:30 20:30 WBC 4.5 RBC 3.59 L Hgb 10.6 L Hct 32.3 L MCV 90.0 MCH 29.5 MCHC 32.8 RDW 14.8 H RDW Differential 48.4 H Plt Count 188 MPV 9.4 Immature Gran % (Auto) Neut % (Auto) Lymph % (Auto) [place] % (Auto) Eos % (Auto) Baso % (Auto) Absolute Neuts (auto) Absolute Lymphs (auto) Total Counted PT INR Sodium 137 Potassium 3.6 Chloride 106 Carbon Dioxide 24.0 Anion Gap 7 BUN 11 Creatinine 1.06 H Estim Creat Clear Calc 44.08 Est GFR (MDRD) Af Amer 68 Est GFR (MDRD) Non-Af 56 L BUN/Creatinine Ratio 10.4 Glucose 264 H Calcium 8.3 L Stone Size Pending Stone Weight Pending Stone Color Pending 09/07/18 09/08/18 09/08/18 20:35 11:28 11:28 WBC 7.4 RBC 3.54 L Hgb 10.4 L Hct 32.1 L MCV 90.7 MCH 29.4 MCHC 32.4 RDW 14.9 H RDW Differential 49.9 H Plt Count 185 MPV 9.6 Immature Gran % (Auto) 0.100 Neut % (Auto) 81.3 H Lymph % (Auto) 10.9 L [place] % (Auto) 5.0 Eos % (Auto) 2.4 Baso % (Auto) 0.3 Absolute Neuts (auto) 6.1 Absolute Lymphs (auto) 0.81 L Total Counted Not Reportable PT 17.6 H INR 1.5 Sodium 141 Potassium 3.7 Chloride 106 Carbon Dioxide 26.0 Anion Gap 9 BUN 8 Creatinine 0.90 Estim Creat Clear Calc 51.92 Est GFR (MDRD) Af Amer 81 Est GFR (MDRD) Non-Af 67 BUN/Creatinine Ratio 8.9 L Glucose 245 H Calcium 8.7 Stone Size Stone Weight Stone Color POC Glucose 09/08/18 09/08/18 09/07/18 11:28 06:47 21:28 POC Glucose 234 H 120 H 256 H Medical Necessity - Tobacco Use Smoking Status: Never smoker Assessment/Plan All Active Problems Left ureteral calculus (Acute) Hydronephrosis, left (Acute) Impressions 1. Sepsis secondary to pyelonephritis. Urine culture and blood cultures are pending. Started on Cipro. 2. Nephrolithiasis with left ureteral calculus-status post cystoscopy, laser lithotripsy, left ureteral stent 3. Diabetes mellitus type 2 4. Patent foramen ovale 5. Chronic anticoagulation with Coumadin 6. Hypothyroidism 7. Hyperlipidemia Continue Cipro Continue IV fluids Continue sliding scale insulin coverage for today and if no nausea/vomiting and tolerating diet in the a.m. Will start her regular diabetic regimen Recheck lab in the a.m. Continue heparin for DVT prophylaxis Stone analysis pending We will discuss with Dr. Garza the timing of initiating Coumadin. Code Visit Inpatient E&M: 67294 Subs Hosp L2
[2018-09-08 20:10] VITALS: BP 123/58; PULSE 102; RESP 16; TEMP 37.6; O2SAT 94
[2018-09-09 02:10] VITALS: BP 111/63; PULSE 88; RESP 18; TEMP 37.9; O2SAT 95
[2018-09-09] MEDS: Acetaminophen 325 MG Tablet 650 MG PO (02:22)
[2018-09-09 04:30] VITALS: TEMP 37.1
[2018-09-09 05:23] LABS: Absolute Lymphocyte Count 1.46 X10^3/ul (0.83-4.51); Absolute Neutrophil Count 4.8 X10^3/uL (2.0-7.7); Basophil# 0.02 X10^3/uL; Basophil% 0.3 % (0-1); Eosinophil# 0.59 X10^3/uL; Eosinophils% 7.9 % (0-5); Hematocrit 31.9 % (37-47); Hemoglobin 9.8 g/dl (12.0-15.0); Lymphocyte # 1.46 X10^3/ul (4.0); Lymphocyte % 19.5 % (19-41); Mean Corp Hgb Conc 30.7 g/gl (32-36); Mean Corpuscular Hgb 28.9 pg (27.0-32.0); Mean Corpuscular Volume 94.1 fL (81-99); Mean Platelet Vol. 9.7 fl (6.2-12.0); Monocyte# 0.58 X10^3/uL; Monocyte% 7.7 % (0-10); Neutrophil # 4.83 X10^3/uL (2.7-7.7); Neutrophil % 64.5 % (47-70); Platelet Count 178 K/mm3 (150-450); RBC Distribution Width CV 14.8 % (11.6-14.6); RBC Distribution Width SD 48.8 fl (35.1-43.9); Red Blood Count 3.39 M/mm3 (4.2-5.4); White Blood Count 7.5 K/mm3 (4.4-11.0)
[2018-09-09 05:24] LABS: POSITIVE COUNT NO; POSITIVE DIFFERENTIAL NO; POSITIVE MORPHOLOGY NO
[2018-09-09 05:39] LABS: International Normalized Ratio 1.2; Prothrombin Time (Protime)PT. 15.4 SECONDS (11.7-14.9)
[2018-09-09 05:47] LABS: ALB/GLOB Ratio 0.8 RATIO (0.9-2.4); AST(SGOT) 62 U/L (15-37); Alanine Aminotransfer ALT/SGPT 61 U/L (13-56); Albumin, Serum 2.6 g/dL (3.2-5.0); Alkaline Phosphatase 59 U/L (45-117); Anion Gap 6 (5-15); BUN 6 mg/dL (7-18); BUN/Creat Ratio 7.9 RATIO (10-20); Calcium,Total 8.4 mg/dL (8.5-10.1); Chloride 112 mmol/L (98-107); Creatinine, Serum 0.76 mg/dL (0.55-1.02); EST Glomerular Filtration Rate 82 mL/min (>60); Est Glom Filt Rate - Afr Amer 100 mL/min (>60); Estimated Creatinine Clearance 61.48 ml/min; Globulin 3.1 g/dL (2.2-4.2); Glucose 180 mg/dL (74-106); Magnesium 1.7 mg/dL (1.6-2.6); Phosphorus 2.8 mg/dL (2.5-4.9); Potassium 3.9 mmol/L (3.5-5.1); Protein, Total 5.7 g/dL (6.4-8.2); Sodium Level 144 mmol/L (136-145)
[2018-09-09] MEDS: Levothyroxine 100 MCG Tablet PO (06:34)
[2018-09-09] MEDS: Heparin Injection (Vial) 5,000 UNIT/ML VIAL 5000 UNIT SC ×2 (06:34→14:32)
[2018-09-09] MEDS: Lactated Ringers 1,000 ML 100 ML IV (06:35)
[2018-09-09] MEDS: Insulin Lispro 100 UNIT/ML INSULN.PEN SC ×3 (06:35→16:59)
[2018-09-09 07:25] VITALS: O2SAT 94
[2018-09-09 07:31] VITALS: BP 118/65; PULSE 77; RESP 14; TEMP 36.9; O2SAT 95
[2018-09-09] MEDS: Ciprofloxacin 400 MG/200 ML BAG 200 MG IV (11:08)
[2018-09-09 12:00] LABS: Bedside Glucose 214 mg/dL (70-110)
[2018-09-09 12:47] LABS: Hemoglobin A1c 7.8 % (4.2-6.3)
[2018-09-09 12:56] LABS: Bedside Glucose 253 mg/dL (70-110)
[2018-09-09 12:56] LABS: Bedside Glucose 153 mg/dL (70-110)
[2018-09-09 12:56] LABS: Bedside Glucose 272 mg/dL (70-110)
[2018-09-09 14:00] VITALS: BP 123/67; PULSE 79; RESP 14; TEMP 36.8; O2SAT 97
--- NOTE | 2018-09-09 15:09 | PN_ITS ---
Subjective: All events of the past 24 hours of been reviewed. Day #3 Cipro T-max over the past 24 hours is 100.3 ?F. Current temp is 98.3. Vital signs are stable. She is 94-97% saturated on room air. Good oral intake and denies nausea/vomiting/abdominal pain/diarrhea/constipation. All lab was personally reviewed. Blood cell count is 7.5 today and the diffe rential is now normal. PT is within normal limits. BMP is unremarkable. Hemoglobin A1c is 7.8. Phosphorus and magnesium are normal. AST and ALT are mildly increased at 62 and 61 respectively. Bilirubin and alk phos are within normal limits. The urine culture has no growth to date She denies cough, shortness of breath, chest pain, palpitations. Blood sugars were reviewed. - Physical Exam General: Alert, Oriented x3, Cooperative, No apparent distress HEENT: Atraumatic, PERRLA, Normocephalic Oral: Moist Mucosa Lungs: No rhonchi, No wheeze, Rales - coarse crackles in the bases that mostly cleared after a few deep breaths....liekly due to atelectasis, - - Tachypneic, no conversational dyspnea, no accessory muscle use Cardiovascular: Regular rate, Regular Rhythm, Normal S1, Normal S2, No murmurs, No rub noted, No Gallop Abdomen: Bowel Sounds Present, Soft, Non Tender, Non-Distended, No Hepato- splenomegaly Extremities: No edema Skin: No rashes Neurological: Cranial nerves II-XII grossly intact, Neuro grossly intact Psych/Mental Status: Normal Affect, Appropriate Vital Signs Temp Pulse Resp BP Pulse Ox 98.3 F 79 14 123/67 H 97 09/09/18 14:00 09/09/18 14:00 09/09/18 14:00 09/09/18 14:00 09/09/18 14:00 Oxygen Delivery Method Room Air Weight: 153 lb 10.595 oz Body Mass Index (BMI) 28.0 Finger Stick Blood Glucose 107 Intake and Output for Last 24 Hours 09/07/18 09/08/18 09/09/18 23:59 23:59 23:59 Intake Total 4402 / 4402 2540 / 2540 3007 / 3007 Output Total 2325 / 2325 1900 / 1900 Balance 4402 / 4402 215 / 215 1107 / 1107 Laboratory Tests Past 24 Hrs 09/09/18 09/09/18 09/09/18 05:00 05:00 05:00 WBC 7.5 RBC 3.39 L Hgb 9.8 L Hct 31.9 L MCV 94.1 MCH 28.9 MCHC 30.7 L RDW 14.8 H RDW Differential 48.8 H Plt Count 178 MPV 9.7 Immature Gran % (Auto) 0.100 Neut % (Auto) 64.5 Lymph % (Auto) 19.5 [place] % (Auto) 7.7 Eos % (Auto) 7.9 H Baso % (Auto) 0.3 Absolute Neuts (auto) 4.8 Absolute Lymphs (auto) 1.46 Total Counted Not Reportable PT 15.4 H INR 1.2 Sodium 144 Potassium 3.9 Chloride 112 H Carbon Dioxide 26.0 Anion Gap 6 BUN 6 L Creatinine 0.76 Estim Creat Clear Calc 61.48 Est GFR (MDRD) Af Amer 100 Est GFR (MDRD) Non-Af 82 BUN/Creatinine Ratio 7.9 L Glucose 180 H Hemoglobin A1c Calcium 8.4 L Phosphorus 2.8 Magnesium 1.7 Total Bilirubin 0.40 AST 62 H ALT 61 H Alkaline Phosphatase 59 Total Protein 5.7 L Albumin 2.6 L Globulin 3.1 Albumin/Globulin Ratio 0.8 L 09/09/18 05:00 WBC RBC Hgb Hct MCV MCH MCHC RDW RDW Differential Plt Count MPV Immature Gran % (Auto) Neut % (Auto) Lymph % (Auto) [place] % (Auto) Eos % (Auto) Baso % (Auto) Absolute Neuts (auto) Absolute Lymphs (auto) Total Counted PT INR Sodium Potassium Chloride Carbon Dioxide Anion Gap BUN Creatinine Estim Creat Clear Calc Est GFR (MDRD) Af Amer Est GFR (MDRD) Non-Af BUN/Creatinine Ratio Glucose Hemoglobin A1c 7.8 H Calcium Phosphorus Magnesium Total Bilirubin AST ALT Alkaline Phosphatase Total Protein Albumin Globulin Albumin/Globulin Ratio POC Glucose 09/09/18 09/09/18 09/08/18 11:50 06:32 22:02 POC Glucose 214 H 153 H 253 H 09/08/18 09/08/18 16:45 11:28 POC Glucose 272 H 234 H Medical Necessity - Tobacco Use Smoking Status: Never smoker Assessment/Plan All Active Problems Left ureteral calculus (Acute) Hydronephrosis, left (Acute) Impressions 1. Sepsis secondary to pyelonephritis. Urine culture and blood cultures are pending. Started on Cipro. 2. Nephrolithiasis with left ureteral calculus-status post cystoscopy, laser lithotripsy, left ureteral stent 3. Diabetes mellitus type 2 4. Patent foramen ovale 5. Chronic anticoagulation with Coumadin 6. Hypothyroidism 7. Hyperlipidemia Continue Cipro Continue IV fluids Continue sliding scale insulin coverage for today and if no nausea/vomiting and tolerating diet in the a.m. Will start her regular diabetic regimen Recheck lab in the a.m. Continue heparin for DVT prophylaxis Stone analysis pending We will discuss with Dr. Garza the timing of initiating Coumadin. She is on a lot of medication for DM including Trulicity, Amaryl 4 mg twice daily, NovoLog 15 units 3 times daily with meals, to receive a 50 units nightly and metformin 1000 mg twice daily. I suspect she is very non-compliant with diet at home.......she is only on a sliding scale in the hospital and her sugars are not terrible he is eating well. I stressed to her the goal for the HGBA1C is < 7. I suspect she may be able to be controlled with oral agents if she would adhere to a diabetic diet. Will consult the social service manager for education/t eaching about appropriate diet. OK to discharge home on Cipro BUT, will need to monitor the INR closely while she is on this medication because there is an interaction between the Cipro and the Warfarin and the Cipro will increase the INR. Would recheck the INR in 3 days after starting the Warfarin.
[2018-09-09 17:10] LABS: Bedside Glucose 208 mg/dL (70-110)
--- NOTE | 2018-09-09 17:46 | PCM.DC.URO ---
Discharge Diet: 1999 Calorie Control Diet Discharge Activity: May not drive while taking narcotic pain medications. Call your doctor if you observe: Fever of 101 or Higher, Inability to urinate, Inability to have a bowel movement, Shortness of breath, Chest pain, Calf discomfort Allergies/Adverse Reactions: Allergies aspirin Allergy (Verified 09/07/18 10:05) Hives clopidogrel [From Plavix] Allergy (Verified 09/07/18 10:05) Hives codeine Allergy (Verified 09/07/18 10:05) Hives Medications to take at Discharge Albuterol IH (ProAir) [Proair Hfa] 2 puff INHALATION Q4H PRN PRN 09/07/13 Cholecalciferol (Vitamin D3) [Vitamin D] 2,000 unit PO DAILY 09/07/13 Glimepiride [Amaryl] 4 mg PO BID 09/07/13 Levothyroxine [Synthroid] 100 mcg PO DAILY 09/07/13 Metformin HCl [Glucophage] 1,000 mg PO BIDCM 09/07/13 Tizanidine HCl [Zanaflex] 0.5 - 1 mg PO DAILY PRN 09/07/13 Warfarin [Coumadin] 5 mg PO TUTH 09/07/13 Dulaglutide [Trulicity] 1.5 mg SQ WE 07/10/18 Insulin Aspart [Novolog Flexpen] 15 units SC TIDCM 07/10/18 Insulin Degludec [Tresiba Flextouch U-100] 50 unit SQ QHS 07/10/18 Losartan Potassium 10 mg PO DAILY 07/10/18 Lovastatin 20 mg PO QHS 07/10/18 Warfarin [Coumadin] 2.5 mg PO SUMOWEFRSA 07/10/18 Cephalexin [Keflex] 250 mg PO QHS 120 Days #90 cap 07/21/18 Hydrocodone Bitart/Apap 5-325 [[place] 5MG-325MG] 1 tab PO Q4H PRN PRN 7 Days #20 tab 09/04/18 Ondansetron [Zofran] 8 mg PO Q8H PRN PRN 7 Days #20 tab 09/04/18 Phenazopyridine HCl [Pyridium] 200 mg PO TID PRN PRN 7 Days #30 tab 09/04/18 The following prescriptions were given: Hydrocodone Bitart/Apap 5-325 [[place] 5MG-325MG] 1 tab PO Q4H PRN PRN 7 Days #20 tab PRN Reason: Pain Ondansetron [Zofran] 8 mg PO Q8H PRN PRN 7 Days #20 tab PRN Reason: Nausea Phenazopyridine HCl [Pyridium] 200 mg PO TID PRN PRN 7 Days #30 tab PRN Reason: Bladder Spasms Orders to be completed after discharge: Prothrombin Time w/INR Time Frame: 09/11/18, Location: Laboratory Primary Care Physician: David Lala DO [Primary Care Provider] - Test Results: Test results from this visit will be discussed in further detail at your follow-up appointment, if applicable. Please Follow Up With: Diane Garza MD When: 2 weeks for stent removal, call for appt. Proposed Discharge Date: 09/04/18
--- NOTE | 2018-09-09 17:49 | DCINST_ITS ---
Discharge Diet: 1999 Calorie Control Diet Discharge Activity: May not drive while taking narcotic pain medications. Call your doctor if you observe: Fever of 101 or Higher, Inability to urinate, Inability to have a bowel movement, Shortness of breath, Chest pain, Calf discomfort Allergies/Adverse Reactions: Allergies aspirin Allergy (Verified 09/07/18 10:05) Hives clopidogrel [From Plavix] Allergy (Verified 09/07/18 10:05) Hives codeine Allergy (Verified 09/07/18 10:05) Hives Medications to take at Discharge Albuterol IH (ProAir) [Proair Hfa] 2 puff INHALATION Q4H PRN PRN 09/07/13 Cholecalciferol (Vitamin D3) [Vitamin D] 2,000 unit PO DAILY 09/07/13 Glimepiride [Amaryl] 4 mg PO BID 09/07/13 Levothyroxine [Synthroid] 100 mcg PO DAILY 09/07/13 Metformin HCl [Glucophage] 1,000 mg PO BIDCM 09/07/13 Tizanidine HCl [Zanaflex] 0.5 - 1 mg PO DAILY PRN 09/07/13 Warfarin [Coumadin] 5 mg PO TUTH 09/07/13 Dulaglutide [Trulicity] 1.5 mg SQ WE 07/10/18 Insulin Aspart [Novolog Flexpen] 15 units SC TIDCM 07/10/18 Insulin Degludec [Tresiba Flextouch U-100] 50 unit SQ QHS 07/10/18 Losartan Potassium 10 mg PO DAILY 07/10/18 Lovastatin 20 mg PO QHS 07/10/18 Warfarin [Coumadin] 2.5 mg PO SUMOWEFRSA 07/10/18 Cephalexin [Keflex] 250 mg PO QHS 120 Days #90 cap 07/21/18 Hydrocodone Bitart/Apap 5-325 [[place] 5MG-325MG] 1 tab PO Q4H PRN PRN 7 Days #20 tab 09/04/18 Ondansetron [Zofran] 8 mg PO Q8H PRN PRN 7 Days #20 tab 09/04/18 Phenazopyridine HCl [Pyridium] 200 mg PO TID PRN PRN 7 Days #30 tab 09/04/18 The following prescriptions were given: Hydrocodone Bitart/Apap 5-325 [[place] 5MG-325MG] 1 tab PO Q4H PRN PRN 7 Days #20 tab PRN Reason: Pain Ondansetron [Zofran] 8 mg PO Q8H PRN PRN 7 Days #20 tab PRN Reason: Nausea Phenazopyridine HCl [Pyridium] 200 mg PO TID PRN PRN 7 Days #30 tab PRN Reason: Bladder Spasms Orders to be completed after discharge: Prothrombin Time w/INR Time Frame: 09/11/18, Location: Laboratory Primary Care Physician: David Lala DO [Primary Care Provider] - Test Results: Test results from this visit will be discussed in further detail at your follow- up appointment, if applicable. Please Follow Up With: Diane Garza MD When: 2 weeks for stent removal, call for appt. Proposed Discharge Date: 09/04/18
--- NOTE | 2018-09-09 17:49 | PCM.PN.GU ---
Physical Exam Subjective: Feeling much better. Occasional pain in bladder from stent. No new events. Will get INR checked on Friday, stent out in 2 weeks in the office. - Physical Exam Vital Signs Temp 98.3 F 09/09/18 14:00 Pulse 79 09/09/18 14:00 Resp 14 09/09/18 14:00 BP 123/67 H 09/09/18 14:00 Pulse Ox 97 09/09/18 14:00 Intake & Output 09/07/18 09/08/18 09/09/18 23:59 23:59 23:59 Intake Total 4402 / 4402 2540 / 2540 4195 / 4195 Output Total 2325 / 2325 1900 / 1900 Balance 4402 / 4402 215 / 215 2295 / 2295 Weight: 69.7 kg Intake: Oral 120 / 120 970 / 970 750 / 750 IV fluid/meds 4282 / 4282 1570 / 1570 3445 / 3445 IV #2 1400 / 1400 IV #3 2300 / 2300 Output: Urine 2325 / 2325 1900 / 1900 Other: Number of Voids 2 General: Alert, Oriented x3, Cooperative, No apparent distress HEENT: Atraumatic, Normocephalic Oral: Moist Mucosa Neck: Supple, Trachea Midline Lungs: Normal air movement Cardiovascular: Regular rate Abdomen: Soft, Non Tender Musculoskeletal: No Muscle Wasting Neurological: Cranial nerves II-XII grossly intact Psych/Mental Status: Normal Affect Laboratory Tests Past 24 Hrs 09/09/18 09/09/18 09/09/18 05:00 05:00 05:00 WBC 7.5 RBC 3.39 L Hgb 9.8 L Hct 31.9 L MCV 94.1 MCH 28.9 MCHC 30.7 L RDW 14.8 H RDW Differential 48.8 H Plt Count 178 MPV 9.7 Immature Gran % (Auto) 0.100 Neut % (Auto) 64.5 Lymph % (Auto) 19.5 [place] % (Auto) 7.7 Eos % (Auto) 7.9 H Baso % (Auto) 0.3 Absolute Neuts (auto) 4.8 Absolute Lymphs (auto) 1.46 Total Counted Not Reportable PT 15.4 H INR 1.2 Sodium 144 Potassium 3.9 Chloride 112 H Carbon Dioxide 26.0 Anion Gap 6 BUN 6 L Creatinine 0.76 Estim Creat Clear Calc 61.48 Est GFR (MDRD) Af Amer 100 Est GFR (MDRD) Non-Af 82 BUN/Creatinine Ratio 7.9 L Glucose 180 H Hemoglobin A1c Calcium 8.4 L Phosphorus 2.8 Magnesium 1.7 Total Bilirubin 0.40 AST 62 H ALT 61 H Alkaline Phosphatase 59 Total Protein 5.7 L Albumin 2.6 L Globulin 3.1 Albumin/Globulin Ratio 0.8 L 09/09/18 05:00 WBC RBC Hgb Hct MCV MCH MCHC RDW RDW Differential Plt Count MPV Immature Gran % (Auto) Neut % (Auto) Lymph % (Auto) [place] % (Auto) Eos % (Auto) Baso % (Auto) Absolute Neuts (auto) Absolute Lymphs (auto) Total Counted PT INR Sodium Potassium Chloride Carbon Dioxide Anion Gap BUN Creatinine Estim Creat Clear Calc Est GFR (MDRD) Af Amer Est GFR (MDRD) Non-Af BUN/Creatinine Ratio Glucose Hemoglobin A1c 7.8 H Calcium Phosphorus Magnesium Total Bilirubin AST ALT Alkaline Phosphatase Total Protein Albumin Globulin Albumin/Globulin Ratio Medical Necessity - Tobacco Use Smoking Status: Never smoker Assessment/Plan All Active Problems Left ureteral calculus (Acute) Hydronephrosis, left (Acute) home today resume all home meds cipro PO for 2 more days, then resume nightly keflex INR on Friday stent out in the office in 2 weeks.
[2018-09-14 20:06] LABS: Ca Oxalate, Monohydrate 93 % (.); Size 6x3x3 mm (.)
== END 2018-09-09 19:15 | disposition home or self-care (01) | DRG 659 ==
LOC: PCU 09-08 00:12 → MS2 09-08 12:43
PROVIDERS: Admitting Provider Urology; Family Provider Student in an Organized Health Care Education/Training Program; PCP Student in an Organized Health Care Education/Training Program; Referring Provider Urology; Visit Provider Internal Medicine
PROC: (CPT 50590; principal; 2018-09-04 10:40)
PROC: 0TJ98ZZ Inspection of Ureter, Via Natural or Artificial Opening Endoscopic (ICD-10-PCS; CPT 52352; principal; 2018-09-07 11:50)
DX: N13.2 Hydronephrosis with renal and ureteral calculous obstruction (principal); A41.9 Sepsis, unspecified organism; Q21.1 Atrial septal defect; E03.9 Hypothyroidism, unspecified; N12 Tubulo-interstitial nephritis, not specified as acute or chronic; E78.5 Hyperlipidemia, unspecified; Z79.01 Long term (current) use of anticoagulants; Z79.4 Long term (current) use of insulin; G35 Multiple sclerosis; E11.9 Type 2 diabetes mellitus without complications
CPT/HCPCS: 36415; 36416; 76000; 80048; 80053; 82360; 82962; 83036; 83735; 84100; 85025; 85027; 85610; 87040; 87086; 88300; J7120; A4216; C1769; C2617; J0744; J2405

== ENCOUNTER → 2018-09-23 12:24 | Outpatient (CLI) | payer MEDICARE, MEDICAID, SELFPAY ==
[2018-09-07 10:08] VITALS: BMI 28.0
[2018-09-23 13:10] LABS: International Normalized Ratio 1.6; Prothrombin Time (Protime)PT. 19.3 SECONDS (11.7-14.9)
== END ==
PROVIDERS: Family Provider Student in an Organized Health Care Education/Training Program; PCP Student in an Organized Health Care Education/Training Program; Referring Provider Nurse Practitioner Adult Health; Visit Provider Nurse Practitioner Adult Health
DX: I63.9 Cerebral infarction, unspecified (principal); Z79.01 Long term (current) use of anticoagulants
CPT/HCPCS: 85610

== ENCOUNTER → 2018-10-28 09:18 | Outpatient (CLI) | payer MEDICARE, MEDICAID, SELFPAY ==
[2018-09-07 10:08] VITALS: BMI 28.0
--- NOTE | 2018-10-28 09:21 | US_ITS ---
STUDY: RENAL ULTRASOUND - COMPLETE REASON FOR EXAM: Female, 63 years old. Left ureteral calculus. TECHNIQUE: Ultrasound evaluation of the kidneys was performed with real-time and static lopes-scale imaging. COMPARISON: Comparison is made with prior CT scan of the abdomen dated August 25, 2018. FINDINGS: RIGHT KIDNEY: Normal location of the right kidney, which is normal in size. The right kidney measures 12.3 cm x 5.9 cm x 5.5 cm. There is a normal cortex of the right kidney. The renal cortex measures 1.6 cm. There is a 1.6 cm x 1.6 x 1.2 cm cyst. There are no right renal calculi. There is no right hydronephrosis. DISTAL RIGHT URETER: There is non-visualization of the distal right ureter. There is no demonstrated right ureterovesical junction calculus. There is a visualized right ureteral jet. LEFT KIDNEY: Normal location of the left kidney, which is normal in size. The left kidney measures 12.6 cm x 4.3 cm x 4.9 cm. There is a normal cortex of the left kidney. The renal cortex measures 1.7 cm. There is no left renal mass or cyst. There are no left renal calculi. There is no left hydronephrosis. DISTAL LEFT URETER: There is non-visualization of the distal left ureter. There is no demonstrated left ureterovesical junction calculus. There is a visualized left ureteral jet. BLADDER: The distended urinary bladder has a volume of 128 ml. The empty urinary bladder has a volume of 18.7 ml. There is a normal wall thickness of the distended urinary bladder. There is no demonstrated mass within the urinary bladder. There are no demonstrated bladder calculi. US/Kidney and Bladder IMPRESSION: Small right renal cyst. Electronically Signed: Rupesh Mac, at 14:55 EDT , Service support ,
== END ==
PROVIDERS: Family Provider Student in an Organized Health Care Education/Training Program; PCP Student in an Organized Health Care Education/Training Program; Referring Provider Urology; Visit Provider Urology
DX: N20.1 Calculus of ureter (principal)
CPT/HCPCS: 76770

== ENCOUNTER → 2019-11-18 09:47 | Outpatient (CLI) | payer MEDICARE, MEDICAID, SELFPAY ==
[2018-09-07 10:08] VITALS: BMI 28.0
--- NOTE | 2019-11-18 09:50 | RAD_ITS ---
STUDY: X-RAY - ABDOMEN/PELVIS REASON FOR EXAM: Female, 64 years old. F/U FOR HISTORY OF KIDNEY STONE ON THE LEFT. TECHNIQUE: Single AP view of the abdomen / pelvis. COMPARISON: None. FINDINGS: Normal visualized lung bases. There is a moderate amount of colonic fecal material. The visualized liver, spleen and kidneys are grossly normal in size and morphology. Normal soft tissue structures. There are mild degenerative changes of the visualized lumbar spine. RAD/Abdomen Single View IMPRESSION: Normal x-ray examination of the abdomen and pelvis. Electronically Signed: Rupesh Mac, at 10:05 EDT , Service support ,
== END ==
PROVIDERS: PCP Student in an Organized Health Care Education/Training Program; Referring Provider Urology; Visit Provider Urology
DX: Z87.442 Personal history of urinary calculi (principal)
CPT/HCPCS: 74018

== ENCOUNTER 2022-06-02 13:16 | Emergency (ER) | payer MEDICARE, MEDICAID, SELFPAY ==
[2022-06-02 13:17] VITALS: BP 161/100; PULSE 88; RESP 15; TEMP 36.3; O2SAT 97; BMI 29.6
--- NOTE | 2022-06-02 13:31 | ED.VIS.FALL ---
HPI HPI - Fall History of Present Illness Chief Complaint: Fall Narrative Narrative: 67-year-old female past medical history of patent foramen ovale for which she takes Coumadin presents with left knee pain, left elbow pain, and left rib pain status post fall last night, over 12 hours ago. She states she was outside trying to catch her cat when she slipped and fell on the sidewalk onto her left side. She denies hitting her head or loss of consciousness. She skinned her left knee and now has mild swelling on her kneecap. She pop her left elbow and fell onto her left ribs. She has soreness in her ribs and mainly in her elbow especially with pronation and supination or if she moves it a certain way. She has not taken any analgesics. She presents because of the pain and swelling of her left knee and mainly her left elbow. She denies other injuries. [facility] Medical History Diabetes type 2, controlled Hypertension Hypothyroid TIA (transient ischemic attack) Home Medications albuterol sulfate 90 mcg/actuation aerosol inhaler (ProAir HFA) 2 puff inhalation Q4H PRN PRN Shortness Of Breath 09/07/13 [History Last Taken Unknown] cholecalciferol (vitamin D3) 50 mcg (2,000 unit) tablet (Vitamin D3) 2,000 unit PO DAILY 09/07/13 [History Last Taken 09/07/18 08:30] glimepiride 4 mg tablet 4 mg PO BID 09/07/13 [History Last Taken Unknown] levothyroxine 50 mcg tablet 100 mcg PO DAILY 09/07/13 [History Last Taken 09/07/18 08:30] metformin 1,000 mg tablet 1,000 mg PO BIDCM 09/07/13 [History Last Taken Unknown] tizanidine 2 mg tablet 0.5 - 1 mg PO DAILY PRN Pain 09/07/13 [History Last Taken Unknown] warfarin 5 mg tablet (Jantoven) 5 mg PO TUTH 09/07/13 [History Last Taken Unknown] dulaglutide 1.5 mg/0.5 mL subcutaneous pen injector (Trulicity) 1.5 mg SQ WE 07/10/18 [History Last Taken Unknown] insulin aspart U-100 100 unit/mL (3 mL) subcutaneous pen (Novolog Flexpen U-100 Insulin aspart) 15 units subcut TIDCM 07/10/18 [History Last Taken Unknown] insulin degludec 100 unit/mL (3 mL) subcutaneous pen (Tresiba FlexTouch U-100 insulin) 50 unit SQ QHS 07/10/18 [History Last Taken Unknown] losartan 25 mg tablet 10 mg PO DAILY 07/10/18 [History Last Taken 09/07/18 08:30] lovastatin 20 mg tablet 20 mg PO QHS 07/10/18 [History Last Taken Unknown] warfarin 2.5 mg tablet (Jantoven) 2.5 mg PO SUMOWEFRSA 07/10/18 [History Last Taken 07/19/18 2.5 MG] acetaminophen 325 mg tablet (Tylenol) 650 mg PO Q4H PRN PRN Fever >101 09/09/18 [Rx Last Taken Unknown] Allergy/AdvReac Type Severity Reaction Status Date / Time aspirin Allergy Hives Verified 06/02/22 13:17 clopidogrel [From Plavix] Allergy Hives Verified 06/02/22 13:17 codeine Allergy Hives Verified 06/02/22 13:17 Surgical History Hx of cholecystectomy Social History Smoking Status: Never smoker ROS ROS ED ROS Narrative Constitutional: No fever, no chills. HEENT: No sore throat. No neck pain. No loss of vision. No rhinorrhea. Cardiovascular: No chest pain. No palpitations. No pedal edema. Respiratory: No cough, no shortness of breath. Abdominal: No abdominal pain. No nausea. No vomiting. Genitourinary: No dysuria. No hematuria. Musculoskeletal: No myalgias. Left knee pain and swelling, left elbow pain and swelling, left rib pain worse with movement. Neurologic: No headaches. No dizziness. No lightheadedness. Skin: No rash. No change in color. Psychiatric: No depression. No anxiety. EXAM Physical Exam Narrative Exam Narrative: Afebrile. Vital signs noted. GCS 15. ABCs intact. HEENT: Normocephalic. Atraumatic. PERRL, EOMI. Neck soft and supple. No point tenderness or step off. Cardiovascular: Regular rate and rhythm. No murmurs, rubs, or gallops appreciated. Respiratory: No tachypnea. Lungs clear to auscultation bilaterally. Gastrointestinal: Abdomen soft, nontender, with normoactive bowel sounds. No rebound or guarding. Neurological: Awake. Alert. Nonfocal, nonlateralizing. Skin: No rash. Normal color. No pallor. Musculoskeletal: No pedal edema. Flexion and extension mechanism left knee intact, range of motion mildly limited secondary to pain. Small hematoma underlying abrasion to left distal patella. Neurovascularly intact distally with palpable radial pulse. Mild tenderness to palpation diffusely left elbow and proximal forearm. No crepitance. Palpable radial pulse. Flexion, extension, and supination along with pronation intact. Mild tenderness to palpation left lateral ribs, no crepitance.. Const Vital Signs: 06/02/22 13:17 06/02/22 13:27 Temperature 97.3 F L Temperature Source Temporal Pulse Rate 88 Respiratory Rate 15 Blood Pressure 161/100 H Blood Pressure Mean 120 Pulse Ox 97 Oxygen Delivery Method Room Air Room Air MDM MDM MDM Narrative Medical decision making narrative: Given that she is on warfarin, INR was obtained. I will also obtain x-rays of her left knee, elbow, and left ribs. She declined any oral analgesics here. INR is therapeutic at 2.7. My interpretation of her left elbow x-ray shows no evidence of fracture. I interpreted her left knee x-ray which also shows no acute fracture or dislocation, no patellar fracture. I interpreted her rib x-ray and chest x-ray and see no evidence of pneumothorax or displaced rib fracture. At this point in time, I feel she can be discharged safely home with follow-up. She will take Tylenol as needed and apply ice to the sore areas. She stated that her tetanus immunization is up-to-date for the abrasion on her left knee. IFISH can be discharged safely home. Return instructions were reviewed. Disposition is discharged home in stable condition. Lab Data Labs: Laboratory Results - last 24 hr 06/02/22 14:00 PT 28.7 H INR 2.7 Radiography Diagnostic Testing: Clinical Impression(s) from Imaging Studies Elbow X-Ray 06/02/22 13:45 IMPRESSION: Negative left elbow. Electronically Signed: Rony Martinez MD at 14:13 EST Reading Location ID and State: [facility] / [place] , Service support , Knee X-Ray 06/02/22 13:45 IMPRESSION: No acute fracture or dislocation of the left knee. Electronically Signed: Rony Martinez MD at 14:29 EST Reading Location ID and State: [facility] / [place] , Service support , Ribs w/Chest X-Ray 06/02/22 13:45 IMPRESSION: Negative chest and left ribs series. Electronically Signed: Rony Martinez MD at 14:14 EST Reading Location ID and State: [facility] / [place] , Service support , Discharge Plan Triage Chief Complaint: Fall ED Provider: Rony Cabello Dx/Rx/DC Orders Prescriptions: No Action tizanidine 2 MG tablet 0.5 - 1 mg PO DAILY PRN (Reason: Pain) levothyroxine 50 MCG tablet 100 mcg PO DAILY metformin 1,000 MG tablet 1,000 mg PO BIDCM glimepiride 4 MG tablet 4 mg PO BID warfarin [Jantoven] 5 MG tablet 5 mg PO TUTH Rx Instructions: FRIDAY AND FRIDAY albuterol sulfate [ProAir HFA] 1 PUFF inhaler 2 puff inhalation Q4H PRN PRN (Reason: Shortness Of Breath) cholecalciferol (vitamin D3) [Vitamin D3] 2,000 UNIT tablet 2,000 unit PO DAILY warfarin [Jantoven] 2.5 MG tablet 2.5 mg PO SUMOWEFRSA Rx Instructions: FRIDAY,FRIDAY,FRIDAY,FRIDAY AND FRIDAY losartan 25 MG tablet 10 mg PO DAILY lovastatin 20 MG tablet 20 mg PO QHS insulin aspart U-100 [Novolog Flexpen U-100 Insulin] 100 UNITS/ML Flexpen 15 units subcut TIDCM insulin degludec [Tresiba FlexTouch U-100] 100 UNIT/ML Insuln.Pen 50 unit SQ QHS dulaglutide [Trulicity] 1.5 MG/0.5 ML Pen.Injctr 1.5 mg SQ WE Rx Instructions: FRIDAY acetaminophen [Tylenol] 325 MG tablet 650 mg PO Q4H PRN PRN (Reason: Fever >101) 0RF Primary Care Provider: David Lala Referrals: David Lala DO [Primary Care Provider] -
--- NOTE | 2022-06-02 13:45 | RAD_ITS ---
EXAM: XR LEFT ELBOW COMPLETE, 3 OR MORE VIEWS CLINICAL INDICATION: Trauma injury. TECHNIQUE: Frontal, lateral and oblique views of the left elbow. This report was created using [employer] report generation technology. COMPARISON: None. FINDINGS: BONES/JOINTS: Unremarkable. There is no displacement of the anterior or posterior fat pads. No acute fracture. No subluxation. Normal alignment. Preservation of the joint space. No destructive or sclerotic lesions. SOFT TISSUES: Unremarkable. No soft tissue swelling or gas. No radiopaque foreign body. RAD/Elbow min 3 Views IMPRESSION: Negative left elbow. Electronically Signed: Rony Martinez MD at 14:13 EST ,
--- NOTE | 2022-06-02 13:45 | RAD_ITS ---
EXAM: XR LEFT RIBS AND AP CHEST, 3 OR MORE VIEWS CLINICAL INDICATION: Trauma injury. Pain. TECHNIQUE: Frontal and oblique views of the left ribs and frontal view of the chest. This report was created using [employer] report [employer] technology. COMPARISON: None. FINDINGS: LUNGS AND PLEURAL SPACES: Unremarkable. No consolidation or edema. No pneumothorax. No effusion. HEART: Unremarkable. Cardiac silhouette not enlarged. MEDIASTINUM: Central airways and mediastinal contour are unremarkable. BONES/JOINTS: Unremarkable. No evidence of displaced rib fractures. RAD/Ribs Uni Min 3V w/PA Chest IMPRESSION: Negative chest and left ribs series. Electronically Signed: Rony Martinez MD at 14:14 EST ,
--- NOTE | 2022-06-02 13:45 | RAD_ITS ---
EXAM: XR LEFT KNEE COMPLETE, 4 OR MORE VIEWS CLINICAL INDICATION: Trauma injury with pain. TECHNIQUE: Four or more views of the left knee. This report was created using [employer] report generation technology. COMPARISON: None. FINDINGS: BONES/JOINTS: Unremarkable. No acute fracture. No subluxation. Normal alignment. Preservation of the joint space. No sclerotic or destructive changes observed. SOFT TISSUES: Abnormal lower prepatellar soft tissue swelling. No radiopaque foreign body. RAD/Knee 4 or More Views IMPRESSION: No acute fracture or dislocation of the left knee. Electronically Signed: Rony Martinez MD at 14:29 EST ,
[2022-06-02 14:13] LABS: International Normalized Ratio 2.7; Prothrombin Time (Protime)PT. 28.7 SECONDS (11.7-14.9)
== END 2022-06-02 15:09 | disposition home or self-care (01) ==
PROVIDERS: Emergency Provider Emergency Medicine; PCP Student in an Organized Health Care Education/Training Program; Visit Provider Emergency Medicine
DX: S80.212A Abrasion, left knee, initial encounter (principal); R07.81 Pleurodynia; M25.522 Pain in left elbow; W01.0XXA Fall on same level from slipping, tripping and stumbling without subsequent striking against object, initial encounter; Y92.480 Sidewalk as the place of occurrence of the external cause; E11.9 Type 2 diabetes mellitus without complications; I10 Essential (primary) hypertension; E03.9 Hypothyroidism, unspecified; Z79.01 Long term (current) use of anticoagulants; Z79.4 Long term (current) use of insulin; Z79.890 Hormone replacement therapy; Z79.899 Other long term (current) drug therapy; Z86.73 Personal history of transient ischemic attack (TIA), and cerebral infarction without residual deficits
CPT/HCPCS: 71101; 73080; 73564; 85610; 99282

== ENCOUNTER 2023-10-31 19:49 | Emergency (ER) | payer MEDICARE, MEDICAID, SELFPAY ==
[2023-10-31 19:50] VITALS: BP 156/76; PULSE 92; RESP 18; TEMP 36.8; O2SAT 96; BMI 29.9
[2023-10-31] MEDS: Cephalexin 250 MG Capsule 500 MG PO (20:21)
--- NOTE | 2023-10-31 22:14 | ED.VIS.LOWEX ---
HPI History of Present Illness Chief Complaint: Wound Narrative Narrative: 68-year-old female presenting with right great toe pain. This has been ongoing for couple days. Denies trauma. She states it is red. It is tender. Patient reports a history of diabetes. No systemic signs or symptoms. [facility] Medical History Hypothyroid Hypertension TIA (transient ischemic attack) Diabetes type 2, controlled Home Medications ?Medication ?Instructions ?Recorded ?Last Taken ?Type albuterol sulfate 90 mcg/actuation 2 puff inhalation Q4H PRN PRN 09/07/13 Unknown History aerosol inhaler (ProAir HFA) Shortness Of Breath cholecalciferol (vitamin D3) 50 2,000 unit PO DAILY 09/07/13 09/07/18 08:30 History mcg (2,000 unit) tablet (Vitamin D3) glimepiride 4 mg tablet 4 mg PO BID 09/07/13 Unknown History levothyroxine 50 mcg tablet 100 mcg PO DAILY 09/07/13 09/07/18 08:30 History metformin 1,000 mg tablet 1,000 mg PO BIDCM 09/07/13 Unknown History tizanidine 2 mg tablet 0.5 - 1 mg PO DAILY PRN Pain 09/07/13 Unknown History warfarin 5 mg tablet (Jantoven) 5 mg PO TUTH 09/07/13 Unknown History dulaglutide 1.5 mg/0.5 mL 1.5 mg SQ WE 07/10/18 Unknown History subcutaneous pen injector (Trulicity) insulin aspart U-100 100 unit/mL 15 units subcut TIDCM 07/10/18 Unknown History (3 mL) subcutaneous pen (Novolog FlexPen U-100 Insulin aspart) insulin degludec 100 unit/mL (3 50 unit SQ QHS 07/10/18 Unknown History mL) subcutaneous pen (Tresiba FlexTouch U-100 insulin) losartan 25 mg tablet 10 mg PO DAILY 07/10/18 09/07/18 08:30 History lovastatin 20 mg tablet 20 mg PO QHS 07/10/18 Unknown History warfarin 2.5 mg tablet (Jantoven) 2.5 mg PO SUMOWEFRSA 07/10/18 07/19/18 History 2.5 MG acetaminophen 325 mg tablet 650 mg (2 x 325 mg) PO Q4H PRN PRN 09/09/18 Unknown Rx (Tylenol) Fever >101 cephalexin 500 mg capsule 500 mg PO Q12 #14 CAPSULES 10/31/23 Unknown Rx Allergy/AdvReac Type Severity Reaction Status Date / Time aspirin Allergy Hives Verified 10/31/23 19:51 clopidogrel (From Plavix) Allergy Hives Verified 10/31/23 19:51 codeine Allergy Hives Verified 10/31/23 19:51 ibuprofen Allergy Angioedema Verified 10/31/23 19:51 Surgical History Hx of cholecystectomy Social History Smoking Status: Never smoker ROS ROS ED Constitutional Constitutional ED: Denies chills, fever(s) or sweats Eyes Eyes: Denies blurry vision or change in vision ENT ENT ED: Denies ear pain or sore throat Cardiovascular Cardiovascular: Denies chest pain, palpitations or racing heartbeat Respiratory/Chest Respiratory/Chest: Denies cough, dyspnea or sputum Gastrointestinal Gastrointestinal: Denies abdominal pain, constipation, diarrhea, nausea or vomiting Genitourinary Genitourinary ED: Denies dysuria, hematuria or urinary frequency Musculoskeletal Musculoskeletal: Denies arthralgias, myalgias or neck pain Integumentary Reports rash; Denies abscess or Abrasions Neurologic Neurologic: Denies headache(s), paresthesias or weakness Psychiatric Psychiatric: Denies anxiety, depression, suicidal ideation or suicidal thoughts Endocrine Endocrinology: Denies polydipsia or polyuria EXAM Physical Exam Const Vital Signs: 10/31/23 19:50 Temperature 98.2 F Temperature Source Temporal Pulse Rate 92 Respiratory Rate 18 Blood Pressure 156/76 H Blood Pressure Mean 102 Pulse Ox 96 Oxygen Delivery Method Room Air Positive well nourished General Appearance ED: NAD HEENT Reports moist mucous membranes normocephalic and atraumatic Cardio regular rate and regular rhythm Extremity Extremity Narrative: Right great toe erythema to the medial aspect of the toenail. No fluctuance. Minimally tender. There is localized redness around this area. Neuro oriented x3 and CN's II-XII intact bilaterally Sensorium / Orientation: alert Motor Exam: strength 5/5 throughout Psych mental status grossly normal Skin Skin Narrative: As described above MDM MDM MDM Narrative Medical decision making narrative: Patient presenting with what looks like an early paronychia on the right great toe. There is no fluctuance or need for drainage. I will place her on antibiotics and counseled her on warm soapy water soaks. She is to follow-up with podiatry. Discharged stable condition. Impression: 1. Paronychia Lab Data Attestation: I reviewed the patient's lab results. Discharge Plan Triage Chief Complaint: Wound ED Provider: Benny Woodall Dx/Rx/DC Orders Instructions: ED Paronychia of the Finger or Toe Prescriptions: New cephalexin 500 mg capsule 500 mg PO Q12 Qty: 14 0RF No Action tizanidine 2 MG tablet 0.5 - 1 mg PO DAILY PRN (Reason: Pain) levothyroxine 50 MCG tablet 100 mcg PO DAILY metformin 1,000 MG tablet 1,000 mg PO BIDCM glimepiride 4 MG tablet 4 mg PO BID warfarin [Jantoven] 5 MG tablet 5 mg PO TUTH Rx Instructions: FRIDAY AND FRIDAY albuterol sulfate [ProAir HFA] 1 PUFF inhaler 2 puff inhalation Q4H PRN PRN (Reason: Shortness Of Breath) cholecalciferol (vitamin D3) [Vitamin D3] 2,000 UNIT tablet 2,000 unit PO DAILY warfarin [Jantoven] 2.5 MG tablet 2.5 mg PO SUMOWEFR Rx Instructions: FRIDAY,FRIDAY,FRIDAY,FRIDAY AND FRIDAY losartan 25 MG tablet 10 mg PO DAILY lovastatin 20 MG tablet 20 mg PO QHS insulin aspart U-100 [Novolog FlexPen U-100 Insulin] 100 UNITS/ML insulin pen 15 units subcut TIDCM insulin degludec [Tresiba FlexTouch U-100] 100 UNIT/ML insulin pen 50 unit SQ QHS dulaglutide [Trulicity] 1.5 MG/0.5 ML pen injector 1.5 mg SQ WE Rx Instructions: FRIDAY acetaminophen [Tylenol] 325 MG tablet 650 mg PO Q4H PRN PRN (Reason: Fever >101) 0RF Primary Care Provider: David Lala Referrals: Farhat Dockery DPM [Med Staff - Active Staff] - As soon as possible David Lala DO [Primary Care Provider] - Print Language: Mongolian Disposition Disposition: Home, Self Care Discharge Date/Time: 10/31/23 20:22
== END 2023-10-31 20:22 | disposition home or self-care (01) ==
PROVIDERS: Emergency Provider Student in an Organized Health Care Education/Training Program; PCP Student in an Organized Health Care Education/Training Program; Visit Provider Student in an Organized Health Care Education/Training Program
DX: L03.031 Cellulitis of right toe (principal); E11.9 Type 2 diabetes mellitus without complications; Z79.4 Long term (current) use of insulin; I10 Essential (primary) hypertension; Z86.73 Personal history of transient ischemic attack (TIA), and cerebral infarction without residual deficits; E03.9 Hypothyroidism, unspecified; Z79.899 Other long term (current) drug therapy; Z79.84 Long term (current) use of oral hypoglycemic drugs; Z79.85 Long-term (current) use of injectable non-insulin antidiabetic drugs; Z79.01 Long term (current) use of anticoagulants; Z90.49 Acquired absence of other specified parts of digestive tract
CPT/HCPCS: 99282